=== PATIENT | male | born 1970 | race Caucasian/White ===

== ENCOUNTER 2021-11-28 16:00 | Outpatient (RCR) | payer OTHER, SELFPAY | END 2021-11-28 17:12 | disposition home or self-care (01) | PROVIDERS: PCP Family Medicine; Visit Provider Family Medicine | DX: M51.36 Other intervertebral disc degeneration, lumbar region (principal); Z51.89 Encounter for other specified aftercare | CPT/HCPCS: 97110; 97162 ==

== ENCOUNTER 2023-06-11 15:56 | Outpatient (CLI) | payer OTHER, SELFPAY | END 2023-06-11 15:57 | disposition home or self-care (01) | PROVIDERS: PCP Family Medicine; Visit Provider Family Medicine | DX: Z00.00 Encounter for general adult medical examination without abnormal findings (principal); R53.83 Other fatigue; Z13.6 Encounter for screening for cardiovascular disorders | CPT/HCPCS: 80053; 80061; 82607; 84443; G0103 ==

== ENCOUNTER 2023-07-01 16:47 | Outpatient (CLI) | payer OTHER, SELFPAY ==
--- OUTSIDE RECORDS SUMMARY | 2023-07-01 16:49 | XMS_ITS | Clinical Summary ---
Author Name Unknown Organization [facility] Address [place], [place] [address] Care Team Providers Care Biological Lab Technician Name Role Phone Ade Stout DO Primary Care Provider [phone] Allergies Active Allergy Reactions Criticality Noted Date Comments Omeprazole Other - Describe In Comment Field 11/09/2014 Patient states that the medication messed with my depth perception related to his vision. Medications Medication Sig Dispensed Refills Start Date End Date Status FLUoxetine (PROZAC) 20 mg capsuleIndications:P remature ejaculation Take 1 Capsule (20 mg) by mouth every morning. 30 Capsule 04/05/2022 Active tadalafiL (CIALIS) 10 mg tabletIndications:Pr emature ejaculation TAKE ONE-HALF TABLET BY MOUTH DAILY IF NEEDED TAKE 30 MINUTES BEFORE SEXUAL ACTIVITY 10 Tablet 05/08/2023 Active Active Problems Problem Noted Date Diagnosed Date Irritable bowel syndrome 02/16/2019 Gallbladder polyp 01/06/2018 Adenomatous colon polyp 04/12/2016 Overview: Colonoscopy 03/2016 polyp repeat in 5 years Constipation 04/20/2015 External hemorrhoids without mention of complica tion 10/04/2008 Heart murmur Encounters Date Type Department Care Team Description 05/07/2023 Refill [facility] [address] [place] [address] Ade Stout DO Refill Request (Tadalafil) from Last 3 Months Immunizations Name Administration Dates Next Due DTaP 08/10/1975 Hepatitis B (Adult) 06/17/2014,11/26/2001,2001 MMR 11/04/1977,08/10/1975 Rubella 08/10/1975 Td (Age >=7 Years) 09/26/1998 Tdap 06/17/2014 Family History Medical History Relation Name Comments Cancer-colon Father Diabetes Father Heart Disease Maternal Grandmother Heart murmur Good Health Mother Genetic Other mother A\T\W~fa ther A\T\W~brother A\T\W~grandparents DM~no known CA, HTN, CAD Heart Disease Sister Heart murmur Relation Name Status Comments Father Alive Maternal Grandmother Mother Alive Other Sister Social History Tobacco Use Types Packs/Day Years Used Date Smoking Tobacco: Former Cigarettes 0.5 25 0 08/22/1986 - 08/23/2011 Smokeless Tobacco: Never Tobacco Cessation:Counseling Given: Not Answered Comments:Smoking History Packs/day: 0.5 Alcohol Use Standard Drinks/Week Comments No 0 (1 standard drink = 0.6 oz pur e alcohol) PHQ-2 Answer Date Recorded PHQ-2 TOTAL SCORE 0 03/12/2022 Social Connections Answer Date Recorded Frequency of Communication with Friends and Fami ly Not on file 04/15/2023 Financial Resource Strain Answer Date R ecorded Difficulty of Paying Living Expenses 3 04/01/2022 Difficulty of Paying Living Expenses Not on file 04/01/2022 Food Insecurity Answer Date Recorded Worried About Running Out of Food in the Last Ye ar 1 04/01/2022 Transportation Needs Answer Date Record ed Lack of Transportation (Medical) 1 04/01/2022 Housing Stability Answer Date Recorded Unable to Pay for Housing in the Last Year 1 04/01/2022 Sex and Gender Information Value Date Recorded Sex Assigned at Not on file Gender Identity Not on file Sexual Orientation Not on file Obstetrics History Last Filed Vital Signs Vital Sign Reading Time Taken Comments Blood Pressure 102/60 04/25/2022 2:44 PM TEXTILE SCREEN MAKER Pulse 65 04/25/2022 2:44 PM TEXTILE SCREEN MAKER Temperature 36.7 ??C (98 ??F) 12/21/2021 10:26 AM CDT Respiratory Rate 16 04/25/2022 2:44 PM TEXTILE SCREEN MAKER Oxygen Saturation 96% 04/01/2022 4:07 PM TEXTILE SCREEN MAKER Inhaled Oxygen Concentration - - Weight 84.8 kg (187 lb) 04/25/2022 2:44 PM TEXTILE SCREEN MAKER Height 174.3 cm (5' 8.62) 04/25/2022 2:44 PM CS T Body Mass Index 27.92 04/25/2022 2:44 PM TEXTILE SCREEN MAKER Plan of Treatment Health Maintenance Due Date Last Done Comments Zoster (shingles) series for age 50+ (1 of 2) 01/08/2022 COVID-19 vaccine series (4 - season) 2022 02/28/2021, 06/28/2020, 06/05/2020 Depression screening for age 12+ 03/12/2023 03/12/2022, 03/31/2018, 01/02/2017, Additional history exists BMI (ht and wt on same day) for age 18+ 04/25/2023 04/25/2022, 03/12/2022, 05/05/2019, Additional history exists Influenza for age 50-64 11/16/2023 Tetanus booster 06/17/2024 06/17/2014, 09/26/1998 Colonoscopy through age 75 04/09/202604/09, 04/09/2016, 03/06/2016 Lipids for age 45-75 03/12/2027 03/12/2022, 06/09/2014, 04/11/2011 Tdap Completed 06/17/2014 HIV for age 15-65 Completed 03/12/2022 Hepatitis C screening for age 18-79 Completed 03/12/2022 Pneumococcal series for age 6-64 Aged Out No longer eligible based on patient's age to complete this topic Procedures Procedure Name Priority Date/Time Associated Diagnosis Comments LC HIV-1/O/2, 4TH GENERATION Routine 03/12/2022 4:27 PM TEXTILE SCREEN MAKER Screening for HIV (human immunodeficiency virus) LC HCV ANTIBODY RFX TO QUANT PCR Routine 03/12/2022 4:27 PM TEXTILE SCREEN MAKER Need for hepatitis C screening test LC LIPID PANEL AND CHOL/HDL RATIO Routine 03/12/2022 4:27 PM TEXTILE SCREEN MAKER Screening for lipid disorders COLONOSCOPY 04/09/2016 12:03 PM TEXTILE SCREEN MAKER from Last 3 Months or Most Recently Relevant to Health Maintenance Results * (ABNORMAL) LC LIPID PANEL AND CHOL/HDL RATIO (03/12/2022 4:27 PM [facility]) [facility] Cholesterol, Total 220(H) 100 - 199 mg/dL 03/15/2022 8:09 AM [facility] Triglycerides 94 0 - 149 mg/dL 03/15/2022 8:09 AM [facility] HDL Cholesterol 50 >39 mg/dL 8:09 AM [facility] VLDL Cholesterol Jean 17 5 - 40 mg/dL 03/15/2022 8:09 AM [facility] LDL Chol Calc ([facility]) 153(H) 0 - 99 mg/dL 03/15/2022 8:09 AM [facility] T. Chol/HDL Ratio 4.4 0.0 - 5.0 ratio 03/15/2022 8:09 AM [facility]) Comment: ?T. Chol/HDL Ratio ?Men ??Women ?1/2 Avg.Risk ??3.4 ?3.3 ?Avg.Risk ??5.0 ?4.4 ? 2X Avg.Risk ??9.6 ?7.1 ? 3X Avg.Risk 23.4 ?? 11.0 Blood BLOOD SPECIMEN / Unknown Venipuncture / Unknown 03/12/2022 4:27 PM TEXTILE SCREEN MAKER 03/13/2022 7:10 AM TEXTILE SCREEN MAKER Narrative [facility] ([facility]) - 03/15/2022 8:09 AM TEXTILE SCREEN MAKER Performed at: ??01 - [address] ??[id number] Coin Purse Framer: Ron Peterson MD, Phone: ??[phone] Ade Stout DO SEND OUTS Performing Organization Address [facility] Co de Phone Number [facility] ([facility]) [address] [place] [address], * LC HCV ANTIBODY RFX TO QUANT PCR (03/12/2022 4:27 PM TEXTILE SCREEN MAKER) Pathologist [facility] HCV Ab <0.1 0.0 - 0.9 s/co ratio 03/15/2022 8:[address] [facility] ([facility]) Blood BLOOD SPECIMEN / Unknown Venipuncture / Unknown 03/12/2022 4:27 PM TEXTILE SCREEN MAKER 03/12/2022 4:28 PM TEXTILE SCREEN MAKER Narrative [facility] ([facility]) - 03/15/2022 8:36 AM TEXTILE SCREEN MAKER Performed at: ??[address] - [address] ??[id number] Coin Purse Framer: Ron Peterson MD, Phone: ??[phone] Ade Stout DO LABORATORY Performing Organization Address [facility] Co de Phone Number [facility] ([facility]) [address] [place] [address] * LC HIV-1/O/2, 4TH GENERATION (03/12/2022 4:27 PM TEXTILE SCREEN MAKER) Pathologist [facility] HIV Scr 4th Gen Non Reactive Non Reactive 03/15/2022 7:[address] [facility]) Comment: HIV Negative HIV-1/HIV-2 antibodies and HIV-1 p24 antigen were NOT detected. There is no laboratory evidence of HIV infection. Blood BLOOD SPECIMEN / Unknown Venipuncture / Unknown 03/12/2022 4:27 PM TEXTILE SCREEN MAKER 03/12/2022 4:28 PM TEXTILE SCREEN MAKER Narrative [facility] ([facility]) - 03/15/2022 7:13 AM TEXTILE SCREEN MAKER Performed at: ??01 - [facility] [employer] [place], [place] ??[id number] Coin Purse Framer: Ron Peterson MD, Phone: ??[phone] Ade Stanhallie DO LABORATORY [facility] ([facility]) [facility] [place] [address], * COLONOSCOPY (04/09/2016 12:03 PM TEXTILE SCREEN MAKER) 04/09/2016 12:0 3 PM TEXTILE SCREEN MAKER Narrative Transcriptions Carlos Henao MD - 05/07/2016 1:07 PM CST Patient Name: Bret Dalilaramer Procedure Date: 04/09/2016 Gender: Male Date of : 1970 Admit Type: Outpatient Procedure: Colonoscopy Proceduralist: Carlos Henao MD Indications/Pre-Op Diagnosis: Periumbilical abdominal pain Medications: Fentanyl 200 micrograms IV, Midazolam 4 mgIV, The level of sedation administered wasmoderate Procedure Description: The patient had risks, benefits and alternatives explained to andgave informed consent. The patient had a stable cardiopulmonary status and judged an adequate candidate for conscious sedation. The [id number] was passed through the anus and advanced tothe terminal ileum. The colonoscopy was performed without difficulty. The patient tolerated the procedure well. The quality of the bowel preparation was excellent. The terminal ileum, ileocecal valve, appendiceal orifice, and rectum were photographed. Moderate(conscious) sedation was administered by the endoscopist. The followingparameters were monitored: oxygen saturation, heart rate, blood pressure, and response to care. Please see endoscopy/ nursing flow sheet and notesfor moderate sedation information and documentation. Total physician intra-service/sedation time was 21 minutes. Complications: No immediate complications. Estimated Blood Loss & Specimen: Estimated blood loss: none. Specimen collected - Yes and sent to Laboratory Findings: The perianal and digital rectal examinations were normal. A 3 mm polyp was found in the descending colon. The polyp wassessile. The polyp was removed with a cold biopsy forceps. Resection and retrieval were complete. The exam was otherwise without abnormality on direct and retroflexion views. The terminal ileum appeared normal. Impressions/Post-Op Diagnosis: - One 3 mm polyp in the descending colon, removed with a cold biopsy forceps. Resected and retrieved. - The examination was otherwise normal on direct and retroflexionviews. - The examined portion of the ileum was normal. Recommendation: - Patient has a contact number available for emergencies. The signsand symptoms of potential delayed complications were discussed with the patient. Return to normal activities tomorrow. Written discharge instructions were provided to the patient. - Resume previous diet. - Continue present medications. - Await pathology results. - Repeat colonoscopy is recommended. The colonoscopy date will be determined after pathology results from today's exam become available for review. Carlos Henao MD 04/09/2016 12:40:34 PM This report has been signed electronically. Note Initiated On: 04/09/2016 12:03 PM Procedure Code(s): --- Professional --- 58079, Colonoscopy, flexible; with biopsy, single or multiple Diagnosis Code(s): --- Professional --- D12.4, Benign neoplasm of descending colon R10.33, Periumbilical pain CPT copyright 2015 [employer]. All rights reserved. The codes documented in this report are preliminary and upon packing house supervisor reviewmay be revised to meet current compliance requirements. Scope In: 12:16:24 PM Scope Withdrawal Time 0 hours 10 minutes 18 seconds Scope Out: 12:33:47 PM Carlos Henao MD PROCEDURE ORD from Last 3 Months or Most Recently Relevant to Health Maintenance Care Teams Biological Lab Technician Relationship Specialty Start Date End Date Ade Stout DO [address] [place] [address] PCP - General Family Practice 03/26/22
--- OUTSIDE RECORDS SUMMARY | 2023-07-01 16:49 | XMS_ITS | Clinical Summary ---
Author Name Unknown Organization [facility] Address [address] [place] [address] Care Team Providers Care Professional Soccer Player Name Role Phone Catrachita Petty PA-C Primary Care Provider [phone] Source Comments You are receiving this document as you are listed as the primary care provider,follow-up provider, or the patient has been referred to you for consultation.This is in compliance with the Medicare and[facility] EHR Incentive Program,which states Providers who transition their patient to another setting of careor provider of care or refers their patient to another provider of care shouldprovide summary care record for each transition of care or referral. [facility] Allergies No known active allergies Medications No known medications Active Problems Problem Noted Date Diagnosed Date Irritable bowel syndrome 02/16/2019 Gallbladder polyp 01/06/2018 Family History Medical History Relation Name Comments Diabetes, Type II Father No Known Problems Brother 1 No Known Problems Brother 2 No Known Problems Brother 3 Diabetes Maternal Aunt insulin overdose Maternal Aunt Diabetes Maternal Grandmother Alzheimer's Paternal Grandfather Diabetes Paternal Grandmother No Known Problems Sister Relation Name Status Comments Father Alive Mother Alive Brother 1 Alive Brother 2 Alive Brother 3 Alive Maternal Aunt Maternal Grandfather Maternal Grandmother Paternal Grandfather Paternal Grandmother Sister Alive Social History Tobacco Use Types Packs/Day Years Used Date Smoking Tobacco: Former Smokeless Tobacco: Never Alcohol Use Standard Drinks/Week Comments Not Currently 0 (1 standard drink = 0.6 oz pur e alcohol) PHQ-2 Answer Date Recorded PHQ-2 Score 0 06/27/2020 Sex and Gender Information Value Date Recorded Sex Assigned at Not on file Gender Identity Not on file Sexual Orientation Not on file Last Filed Vital Signs Vital Sign Reading Time Taken Comments Blood Pressure 111/72 06/27/2020 7:02 AM CDT Pulse 59 06/27/2020 7:02 AM CDT Temperature 36.9 ??C (98.4 ??F) 02/15/2019 2:24 PM CS T Respiratory Rate 18 06/27/2020 7:02 AM CDT Oxygen Saturation - - Inhaled Oxygen Concentration - - Weight 84.8 kg (187 lb) 06/27/2020 7:02 AM CDT Height 175.3 cm (5' 9) 06/27/2020 7:02 AM CDT Body Mass Index 27.62 06/27/2020 7:02 AM CDT Plan of Treatment Health Maintenance Due Date Last Done Comments Hep C Screening (Preventive Services) 1970 PSA Screening Discussion 1970 HIV Screening (Preventive Services) 1988 Adult Preventive Visit 01/08/1990 HepB (1) 01/08/1991 Colonoscopy 04/09/2021 04/09/2016 (Completed) Zoster/Shingles (1 of 2) 01/08/2022 COVID-19 Vaccine (2 - 2022-2 4 season) 2022 06/05/2020 Influenza (#1) 2022 DTaP/Tdap/Td (3 - Tdap) 06/17/2024 06/18/19 15, 09/26/1998, 08/10/1975 Cholesterol 06/27/2025 06/27/2020 HepA Aged Out No longer eligi ble based on patient's age to complete this topic Hib Aged Out No longer eligi ble based on patient's age to complete this topic IPV (Polio) Aged Out No longer eligi ble based on patient's age to complete this topic MCV4 Aged Out No longer eligi ble based on patient's age to complete this topic Pneumococcal Aged Out No longer eligi ble based on patient's age to complete this topic Procedures Procedure Name Priority Date/Time Associated Diagnosis Comments LIPID PANEL & DIRECT LDL (IF NEEDED) Routine 06/27/2020 7:51 AM CDT Screening for lipid disorders from Last 3 Months or Most Recently Relevant to Health Maintenance Results * (ABNORMAL) Lipid Panel and Direct LDL(If Needed) (06/27/2020 7:51 AM CDT) Cholesterol 206(H) 0 - 199 mg/dL 06/27/2020 11:47 AM CDT [facility] Triglyceride 140 <=149 mg/dL 06/27/2020 11:47 AM CDT [facility] HDL Cholesterol 45 >=40 mg/dL 06/27/2020 11:47 AM CDT [facility] LDL, Calculated 133(H) <130 mg/dL 06/27/2020 11:47 AM CDT [facility] Non HDL Chol, Calculated 161 mg/dL 06/27/2020 11:47 AM CDT [facility] Cholesterol/HDL Ratio 4.6 06/27/2020 11:47 AM CDT [facility] Hours Fasting 12 06/27/2020 11:47 AM CDT [facility] Blood Venipuncture / Unknown 06/27/2020 7:51 AM CDT 06/27/2020 7:51 AM CDT Werner Shields PA-C LAB_1 Performing Organization Address City/State/[facility] Co de Phone Number [facility] [address] [address] [phone] [facility] [address] [place] [address] [phone] from Last 3 Months or Most Recently Relevant to Health Maintenance Care Teams Professional Soccer Player Relationship Specialty Start Date End Date Catrachita Petty PA-C [address] [place] [address] PCP - General Physician Maintenance Technician [address]Rd Shift 02/16/19
--- NOTE | 2023-07-01 17:00 | US_ITS ---
Patient: MICHAEL DIOR Facility:?[facility] Patient ID:?[id number] Site Patient ID:?[id number]. Site :?1970 Study:?US-Abdomen ABD LMT-07/01/2023 5:27:59 PM Ordering Physician:?MACK ARGUELLO M.D. Final Report: INDICATION: Cholesterolosis of the gallbladder.. TECHNIQUE: Ultrasound abdomen limited. Limited scans of the right upper quadrant were obtained. COMPARISON: None. FINDINGS: Gallbladder: No stones or sludge. There is a 2 millimeter gallbladder wall polyp. No pericholecystic fluid. Common bile duct: 3 mm. Pancreas: Unremarkable. Liver: Unremarkable. Abdominal aorta: The abdominal aorta has a normal caliber measuring up to 2.5 centimeters. Right kidney: Not imaged. IMPRESSION: 2 millimeter gallbladder wall polyp. Dictated by Zuhair Quintana MD @ 07/02/2023 8:31:58 AM Signed by:?Zuhair Quintana MD @07/02/2023 8:31:58 AM (Electronic Signature)
== END 2023-07-01 16:48 | disposition home or self-care (01) ==
LOC: US 16:47
PROVIDERS: PCP Family Medicine; Visit Provider Family Medicine
DX: K82.4 Cholesterolosis of gallbladder (principal)
CPT/HCPCS: 76705

== ENCOUNTER 2023-07-11 08:27 | Outpatient (CLI) | payer OTHER, SELFPAY ==
--- OUTSIDE RECORDS SUMMARY | 2023-07-11 08:29 | XMS_ITS | Clinical Summary ---
Author Name Unknown Organization [facility] Address [address] [place] [address] Care Team Providers Care Director [employer] Name Role Phone Catrachita Petty PA-C Primary Care Provider [phone] Source Comments You are receiving this document as you are listed as the primary care provider,follow-up provider, or the patient has been referred to you for consultation.This is in compliance with the Medicare and[facility] E[facility] Incentive Program,which states Providers who transition [...] - 199 mg/dL 06/27/2020 11:47 AM CDT [facility] Triglyceride 140 <=149 mg/dL 06/27/2020 11:47 AM CDT [facility] HDL Cholesterol 45 >=40 mg/dL 06/27/2020 11:47 AM CDT [facility] LDL, Calculated 133(H) <130 mg/dL 06/27/2020 11:47 AM CDT [facility] Non HDL Chol, Calculated 161 mg/dL 06/27/2020 11:47 AM CDT [facility] Cholesterol/HDL Ratio 4.6 06/27/2020 11:47 AM CDT [facility] Hours Fasting 12 06/27/2020 11:47 AM CDT [facility] Blood Venipuncture / Unknown 06/27/2020 7:51 AM CDT 06/27/2020 7:51 AM CDT Werner Shields PA-C LAB_1 Performing Organization Address City/State/[facility] Co de Phone Number [facility] [address] [address] [phone] [facility] [address] [place] [address] [phone] from Last 3 Months or Most Recently Relevant to Health Maintenance Care Teams Director [employer] Relationship Specialty Start Date End Date Catrachita Petty PA-C [address] [place] [address] PCP - General Physician Agriculture Professor 02/16/19
--- OUTSIDE RECORDS SUMMARY | 2023-07-11 08:29 | XMS_ITS | Clinical Summary ---
Author Name Unknown Organization [facility] Address [place], [place] [address] Care Team Providers Care Core Stripper Name Role Phone Ade Stout DO Primary Care Provider [phone] Allergies Active Allergy Reactions Criticality Noted Date [...] Type Department Care Team Description 05/07/2023 Refill [facility] [address] [place] [address] Ade Stout DO Refill Request (Tadalafil) from [...] Comments Blood Pressure 102/60 04/25/2022 2:44 PM ENROLLED AGENT Pulse 65 04/25/2022 2:44 PM ENROLLED AGENT Temperature 36.7 ??C (98 ??F) 12/21/2021 10:26 AM CDT Respiratory Rate 16 04/25/2022 2:44 PM ENROLLED AGENT Oxygen Saturation 96% 04/01/2022 4:07 PM ENROLLED AGENT Inhaled Oxygen Concentration - - Weight 84.8 kg (187 lb) 04/25/2022 2:44 PM ENROLLED AGENT Height 174.3 cm (5' 8.62) 04/25/2022 2:44 PM CS T Body Mass Index 27.92 04/25/2022 2:44 PM ENROLLED AGENT Plan of Treatment Health Maintenance Due Date [...] HIV-1/O/2, 4TH GENERATION Routine 03/12/2022 4:27 PM ENROLLED AGENT Screening for HIV (human immunodeficiency virus) LC HCV ANTIBODY RFX TO QUANT PCR Routine 03/12/2022 4:27 PM ENROLLED AGENT Need for hepatitis C screening test LC LIPID PANEL AND CHOL/HDL RATIO Routine 03/12/2022 4:27 PM ENROLLED AGENT Screening for lipid disorders COLONOSCOPY 04/09/2016 12:03 PM ENROLLED AGENT from Last 3 Months or Most Recently Relevant to Health Maintenance Results * (ABNORMAL) LC LIPID PANEL AND CHOL/HDL RATIO (03/12/2022 4:27 PM [facility]) [facility] Cholesterol, Total 220(H) 100 - 199 mg/dL 03/15/2022 8:09 AM [facility] ([facility]) Triglycerides 94 0 - 149 mg/dL 03/15/2022 8:09 AM [facility] ([facility]) HDL Cholesterol 50 >39 mg/dL 8:09 AM [facility] ([facility]) VLDL Cholesterol Jean 17 5 - 40 mg/dL 03/15/2022 8:09 AM [facility] ([facility]) LDL Chol Calc ([facility]) 153(H) 0 - 99 mg/dL 03/15/2022 8:09 AM [facility] ([facility]) T. Chol/HDL Ratio 4.4 0.0 - 5.0 ratio 03/15/2022 8:09 AM [facility] ([facility]) Comment: ?T. Chol/HDL Ratio ?Men ??Women ?1/2 Avg.Risk ??3.4 ?3.3 ?Avg.Risk ??5.0 ?4.4 ? 2X Avg.Risk ??9.6 ?7.1 ? 3X Avg.Risk 23.4 ?? 11.0 Blood BLOOD SPECIMEN / Unknown Venipuncture / Unknown 03/12/2022 4:27 PM ENROLLED AGENT 03/13/2022 7:10 AM ENROLLED AG[address] [facility] ([facility]) - 03/15/2022 8:09 AM ENROLLED AGENT Performed at: ??01 - [address] ??[id number] Singe Machine Operator: Ron Peterson MD, Phone: ??[phone] Ade Stout DO SEND OUTS Performing Organization Address [facility] Co de Phone Number [facility] ([facility]) [address] [place] [address], * LC HCV ANTIBODY RFX TO QUANT PCR (03/12/2022 4:27 PM ENROLLED AGENT) Pathologist [facility] HCV Ab <0.1 0.0 - 0.9 s/co ratio 03/15/2022 8:[address] [facility] ([facility]) Blood BLOOD SPECIMEN / Unknown Venipuncture / Unknown 03/12/2022 4:27 PM ENROLLED AGENT 03/12/2022 4:28 PM ENROLLED AGENT Narrative [facility] ([facility]) - 03/15/2022 8:36 AM ENROLLED AGENT Performed at: ??01 - [address] ??[id number] Singe Machine Operator: Ron Peterson MD, Phone: ??[phone] Ade Stout DO LABORATORY Performing Organization Address [facility] Co de Phone Number [facility] ([facility]) [address] [place] [address] * LC HIV-1/O/2, 4TH GENERATION (03/12/2022 4:27 PM ENROLLED AGENT) Pathologist [facility] HIV Scr 4th Gen Non Reactive Non Reactive 03/15/2022 7:[address] [facility] ([facility]) Comment: HIV Negative HIV-1/HIV-2 antibodies and HIV-1 p24 antigen were NOT detected. There is no laboratory evidence of HIV infection. Blood BLOOD SPECIMEN / Unknown Venipuncture / Unknown 03/12/2022 4:27 PM ENROLLED AGENT 03/12/2022 4:28 PM ENROLLED AGENT Narrative [facility] ([facility]) - 03/15/2022 7:13 AM ENROLLED AGENT Performed at: ??01 - [facility] [place], [place] ??[id number] Singe Machine Operator: Ron Peterson MD, Phone: ??[phone] Ade Stanhallie DO LABORATORY [facility] ([facility]) [facility] [place] [address], * COLONOSCOPY (04/09/2016 12:03 PM ENROLLED AGENT) 04/09/2016 12:0 3 PM ENROLLED AGENT Narrative Transcriptions Carlos Henao MD - 05/07/2016 [...] adequate candidate for conscious sedation. The PCF-Q290AL [id number] was passed through the anus and advanced [...] 12:03 PM Procedure Code(s): --- Professional --- 10528, Colonoscopy, flexible; with biopsy, single or multiple Diagnosis Code(s): --- Professional --- D12.4, Benign neoplasm of descending colon R10.33, Periumbilical pain CPT copyright 2015 [employer]. All rights reserved. The codes documented in this report are preliminary and upon stripping cutter and winder reviewmay be revised to meet current compliance requirements. Scope In: 12:16:24 PM Scope Withdrawal Time 0 hours 10 minutes 18 seconds Scope Out: 12:33:47 PM Carlos Henao MD PROCEDURE ORD from Last 3 Months or Most Recently Relevant to Health Maintenance Care Teams Core Stripper Relationship Specialty Start Date End Date Ade Stout DO [address] [place] [address] PCP - General Family Practice 03/26/22
--- NOTE | 2023-07-11 10:01 | W.ANESCHARGE ---
Anesthesia Charges Start Date/Time Anesthesia Start Date: 07/11/23 Anesthesia Start Time: 09:40 Stop Date/Time Anesthesia Stop Date: 07/11/23 Anesthesia Stop Time: 10:02
--- NOTE | 2023-07-11 10:43 | W.ANESCHARGE ---
Anesthesia Charges Start Date/Time Anesthesia Start Date: 07/11/23 Anesthesia Start Time: 09:40 Stop Date/Time Anesthesia Stop Date: 07/11/23 Anesthesia Stop Time: 10:02
== END 2023-07-11 08:28 | disposition home or self-care (01) ==
LOC: OP CLINIC 08:27
PROVIDERS: PCP Family Medicine; Visit Provider Internal Medicine
DX: Z12.11 Encounter for screening for malignant neoplasm of colon (principal); K63.5 Polyp of colon; Z86.010 Personal history of colon polyps
CPT/HCPCS: 00811; 45380; 88305

== ENCOUNTER 2023-07-24 11:38 | Outpatient (CLI) | payer OTHER, SELFPAY ==
--- OUTSIDE RECORDS SUMMARY | 2023-07-24 11:40 | XMS_ITS | Continuity of Care Document ---
Author Name Unknown Organization [facility] Address [address] [address] [place] [address] Phone Care Team Providers Care Electrical Line Mechanic Name Role Phone Santi Jeffers MD Unavailable Unavailable Allergies, Adverse Reactions, Alerts Substance Reaction Status Criticality No Known allergies Medications Medication Instructions Dosage Effective Dates (start - stop) Status Comments Prilosec OTC 20 mg Tab Take one tablet by mouth daily - Active Reglan 10 mg Tab Take one tablet by mouth three times per day 1/2 hour before meals - Active Advance Directives Directive Yes / No Effective Date File Name No Information Encounters Encounter Description Practice Location Reason(s) For Visit Diagnoses Date Provider Providers Copied on Encounter [facility], [address] [address], [place], [place], [id number], tel:[phone] [facility] No Information Zeyad Hancock. [address] [place] [address], [id number], [place]. tel:[phone] Referring Provider: MD Bhakta Primary. [facility], [address] [address], [place], [place], [id number], tel:[phone] [facility] No Information Zeyad Hancock. [address] [place] [id number], [place]. tel:[phone] Referring Provider: Referral Self, USE FOR SELF REFERRALS. Family History Family Member Type Diagnosis Age At Onset No Information Payers Payer name Insurance type Covered libertarian ID Authoriza tion(s) [employer] CI [id number] Social History Type Description Quantity Date Captured Comments Sex Male Smoking Status No Information Chief Complaint And Reason For Visit No Information Reason For Referral Reason For Referral No Information History Of Present Illness Encounter Date Complaint History Of Prese nt Illness No Information Functional Status Date Functional Assessmen t No Information Instructions Date Instruction Additional Infor mation No Information Assessments Type Assessment Date No Information Patient Care Teams Name Effective Dates (start - stop) Status Members No Information
--- OUTSIDE RECORDS SUMMARY | 2023-07-24 11:40 | XMS_ITS | Clinical Summary ---
Author Name Unknown Organization [facility] Address [address] [place] [address] Care Team Providers Care Technical Support Intern Name Role Phone Catrachita Petty PA-C Primary Care Provider [phone] Source Comments You are receiving this document as you are listed as the primary care provider,follow-up provider, or the patient has been referred to you for consultation.This is in compliance with the Medicare and[facility] EHR Incentive Program,which states Providers who transition [...] - 2022-2 4 season) 2022 06/05/2020 Influenza (Season Ended) 2023 DTaP/Tdap/Td (3 - Tdap) 06/17/2024 06/18/19 15, [...] - 199 mg/dL 06/27/2020 11:47 AM CDT [facility] Triglyceride 140 <=149 mg/dL 06/27/2020 11:47 AM CDT [facility] HDL Cholesterol 45 >=40 mg/dL 06/27/2020 11:47 AM CDT [facility] LDL, Calculated 133(H) <130 mg/dL 06/27/2020 11:47 AM CDT [facility] Non HDL Chol, Calculated 161 mg/dL 06/27/2020 11:47 AM CDT [facility] Cholesterol/HDL Ratio 4.6 06/27/2020 11:47 AM CDT [facility] Hours Fasting 12 06/27/2020 11:47 AM CDT [facility] Blood Venipuncture / Unknown 06/27/2020 7:51 AM CDT 06/27/2020 7:51 AM CDT Werner Shields PA-C LAB_1 Performing Organization Address City/State/[facility] Co de Phone Number [facility] [address] [address] [phone] [facility] [address] [place] [address] [phone] from Last 3 Months or Most Recently Relevant to Health Maintenance Care Teams Technical Support Intern Relationship Specialty Start Date End Date Catrachita Petty PA-C [address] [place] [address] PCP - General Physician Conservation Policy Analyst 02/16/19
--- OUTSIDE RECORDS SUMMARY | 2023-07-24 11:40 | XMS_ITS | Clinical Summary ---
Author Name Unknown Organization [facility] Address [place], [place] [address] Care Team Providers Care Salesperson Driver Name Role Phone Ade Stout DO Primary Care Provider [phone] Allergies Active Allergy Reactions Criticality Noted Date [...] Encounters Date Type Department Care Team Description 07/11/2023 Lab Requisition L [facility] [phone] Chris Ayers MD 05/07/2023 Refill [facility] [address] [place] [address] Ade Stout DO Refill Request (Tadalafil) from [...] Comments Blood Pressure 102/60 04/25/2022 2:44 PM DIRECTOR SPORTS Pulse 65 04/25/2022 2:44 PM DIRECTOR SPORTS Temperature 36.7 ??C (98 ??F) 12/21/2021 10:26 AM CDT Respiratory Rate 16 04/25/2022 2:44 PM DIRECTOR SPORTS Oxygen Saturation 96% 04/01/2022 4:07 PM DIRECTOR SPORTS Inhaled Oxygen Concentration - - Weight 84.8 kg (187 lb) 04/25/2022 2:44 PM DIRECTOR SPORTS Height 174.3 cm (5' 8.62) 04/25/2022 2:44 PM CS T Body Mass Index 27.92 04/25/2022 2:44 PM DIRECTOR SPORTS Plan of Treatment Health Maintenance Due Date Last Done Comments Zoster (shingles) series for age 50+ (1 of 2) 01/08/2022 COVID-19 vaccine series ( season) 2022 02/28/2021, 06/28/2020, 06/05/2020 Depression screening [...] Procedure Name Priority Date/Time Associated Diagnosis Comments LAB TRACKING EVENT Routine 07/11/2023 9: 55 AM CDT PATH TISSUE EXAM Routine 07/11/2023 9:55 AM CDT LC HIV-1/O/2, 4TH GENERATION Routine 03/12/2022 4:27 PM DIRECTOR SPORTS Screening for HIV (human immunodeficiency virus) LC HCV ANTIBODY RFX TO QUANT PCR Routine 03/12/2022 4:27 PM DIRECTOR SPORTS Need for hepatitis C screening test LC LIPID PANEL AND CHOL/HDL RATIO Routine 03/12/2022 4:27 PM DIRECTOR SPORTS Screening for lipid disorders COLONOSCOPY 04/09/2016 12:03 PM DIRECTOR SPORTS from Last 3 Months or Most Recently Relevant to Health Maintenance Results * LAB TRACKING EVENT (07/11/2023 9:55 AM CDT) Other (Other) Client Collect / Unknown 07/11/2023 9:55 AM CDT 07/11/2023 9:05 PM CDT Chris Ayers MD LAB BILL ONLY [facility] [address] [place] [address], * PATH TISSUE EXAM (07/11/2023 9:55 AM CDT) Case Report Pathology Report ?Case: [id number] ? Authorizing Provider: ??Chris Ayers MD ?Collected: ? 07/11/2023 0955 ? Ordering Location: ? [facility] ?Received: ?07/12/2023 0836 ? Pathologist: ? Werner Mena MD ? Specimen: ? 07/14/2023 11:11 AM CDT [facility] Final Diagnosis A) COLON, SIGMOID, POLYPECTOMY: 1. Hyperplastic polyp 07/14/2023 11:11 AM [facility] Clinical Information Mr. Mora is a 53 y.o. who presents for high risk colon cancer surveillance colonoscopy. 07/14/2023 11:11 AM [facility] Gross Description A) Received in formalin is a chanel mucosal fragment measuring 3 mm in greatest dimension, which is entirely submitted in one cassette. It is labeled with the patient's name and designated sigmoid polyp. Gisella Walters 07/12/2023 11:06 AM 07/14/2023 11:11 AM [facility] Microscopic Description The final diagnosis is based on microscopic examination of appropriate sections of all specimens. 07/14/2023 11:11 AM [facility] Additional Information Interpreted at [facility], Central Laboratory - [address] [place], [place] [address]e S[facility] [address], [place] [address] 07/14/2023 11:11 AM [facility] Other 07/11/2023 9:55 AM CDT 07/12/2023 8:36 AM CDT Chris Ayers MD PATHOLOG[facility] [address] [place] [address], * (ABNORMAL) LC LIPID PANEL AND CHOL/HDL RATIO (03/12/2022 4:27 PM DIRECTOR SPORTS) Cholesterol, Total 220(H) 100 - 199 mg/dL 03/15/2022 8:09 AM DIRECTOR SPORTS [facility] Triglycerides 94 0 - 149 mg/dL 03/15/2022 8:[address] [facility] ([facility]) HDL Cholesterol 50 >39 mg/dL 8:[address] [facility] ([facility]) VLDL Cholesterol Jean 17 5 - 40 mg/dL 03/15/2022 8:[address] [facility] ([facility]) LDL Chol Calc ([facility]) 153(H) 0 - 99 mg/dL 03/15/2022 8:[address] [facility] ([facility]) T. Chol/HDL Ratio 4.4 0.0 - 5.0 ratio 03/15/2022 8:[address] [facility] ([facility]) Comment: ?T. Chol/HDL Ratio ?Men ??Women ?1/2 Avg.Risk ??3.4 ?3.3 ?Avg.Risk ??5.0 ?4.4 ? 2X Avg.Risk ??9.6 ?7.1 ? 3X Avg.Risk 23.4 ?? 11.0 Blood BLOOD SPECIMEN / Unknown Venipuncture / Unknown 03/12/2022 4:27 PM DIRECTOR SPORTS 03/13/2022 7:10 AM DIRECTOR SPORTS Narrative [facility] ([facility]) - 03/15/2022 8:09 AM DIRECTOR SPORTS Performed at: ??01 - [address] ??[id number] Fashion Editor: Ron Peterson MD, Phone: ??[phone] Ade Stout DO SEND OUTS Performing Organization Address [facility] de Phone Number [facility] ([facility]) [address] [place] [address], * LC HCV ANTIBODY RFX TO QUANT PCR (03/12/2022 4:27 PM DIRECTOR SPORTS) Pathologist [facility] HCV Ab <0.1 0.0 - 0.9 s/co ratio 03/15/2022 8:36 AM DIRECTOR SPORTS [facility] ([facility]) Blood BLOOD SPECIMEN / Unknown Venipuncture / Unknown 03/12/2022 4:27 PM DIRECTOR SPORTS 03/12/2022 4:28 PM DIRECTOR SPORTS Narrative [facility] ([facility]) - 03/15/2022 8:36 AM DIRECTOR SPORTS Performed at: ??01 - [address] ??[id number] Fashion Editor: Ron Peterson MD, Phone: ??[phone] Ade Stout DO LABORATORY Performing Organization Address [facility] de Phone Number [facility] ([facility]) [address] [place] [address], * LC HIV-1/O/2, 4TH GENERATION (03/12/2022 4:27 PM DIRECTOR SPORTS) [facility] HIV Scr 4th Gen Non Reactive Non Reactive 03/15/2022 7:13 AM DIRECTOR SPORTS [facility]) Comment: HIV Negative HIV-1/HIV-2 antibodies and HIV-1 p24 antigen were NOT detected. There is no laboratory evidence of HIV infection. Blood BLOOD SPECIMEN / Unknown Venipuncture / Unknown 03/12/2022 4:27 PM DIRECTOR SPORTS 03/12/2022 4:28 PM DIRECTOR SPORTS Narrative [facility] ([facility]) - 03/15/2022 7:13 AM DIRECTOR SPORTS Performed at: ??01 - [facility] [place] [employer] [place] [address] ??[id number] Fashion Editor: Ron Peterson MD, Phone: ??[phone] Ade Stanhallie DO LABORATORY [facility] ([facility]) [facility] [place] [address], * COLONOSCOPY (04/09/2016 12:03 PM DIRECTOR SPORTS) 04/09/2016 12:0 3 PM DIRECTOR SPORTS Narrative Transcriptions Carlos Henao MD - 05/07/2016 1:07 PM CST Patient Name: Bret [place] Procedure Date: 04/09/2016 Gender: Male Date of [...] adequate candidate for conscious sedation. The PCF-Q290AL [id number] was passed through the anus and advanced [...] 12:03 PM Procedure Code(s): --- Professional --- 10010, Colonoscopy, flexible; with biopsy, single or multiple Diagnosis Code(s): --- Professional --- D12.4, Benign neoplasm of descending colon R10.33, Periumbilical pain CPT copyright 2015 [employer]. All rights reserved. The codes documented in this report are preliminary and upon micro photographer reviewmay be revised to meet current compliance requirements. Scope In: 12:16:24 PM Scope Withdrawal Time 0 hours 10 minutes 18 seconds Scope Out: 12:33:47 PM Carlos Henao MD PROCEDURE ORD from Last 3 Months or Most Recently Relevant to Health Maintenance Care Teams Salesperson Driver Relationship Specialty Start Date End Date Ade Stout DO [address] [place] [address] PCP - General Family Practice 03/26/22
--- NOTE | 2023-07-24 12:00 | NM_ITS ---
Patient: MICHAEL Young DECRAMER Facility:?[facility] Patient ID:?[id number] Site Patient ID:?[id number]. Site :?[id number] Study:?NM-Gallbladder Procedure PRATIBHA johnson/ [facility]BE[facility]-07/24/2023 2:14:04 PM Ordering Physician:?THIAGO HEAD Final Report: Indication: Abdominal pain Technique: Nuclear medicine hepatobiliary scan with gallbladder ejection fraction per protocol after the intravenous administration of 5.3 millicuries technetium 99 M Mebrofenin and 1.6 micrograms of CCK. Comparison: Right upper quadrant ultrasound July 01, 2023 Findings: Normal hepatic extraction and excretion of the radiopharmaceutical. Prompt appearance of the common bile duct followed by the gallbladder and then small- bowel. No enterogastric reflux. After the administration of CCK there is significant contraction of the gallbladder. Calculated gallbladder ejection fraction is 91 percent. Impression: Hyperkinetic gallbladder Dictated by Lobo Puri MD @ 07/24/2023 4:28:48 PM Signed by:?Lobo Puri MD @07/24/2023 4:28:48 PM (Electronic Signature)
== END 2023-07-24 11:39 | disposition home or self-care (01) ==
LOC: NM 11:38
PROVIDERS: PCP Family Medicine; Visit Provider Surgery
DX: R10.9 Unspecified abdominal pain (principal); K82.8 Other specified diseases of gallbladder
CPT/HCPCS: 78227; A9537; J2805

== ENCOUNTER 2023-08-21 11:17 | Outpatient (CLI) | payer OTHER, SELFPAY ==
--- NOTE | 2023-08-21 12:08 | W.ANESCHARGE ---
Anesthesia Charges Start Date/Time Anesthesia Start Date: 08/21/23 Anesthesia Start Time: 12:05 Stop Date/Time Anesthesia Stop Date: 08/21/23 Anesthesia Stop Time: 12:35
--- NOTE | 2023-08-21 12:35 | W.ANESCHARGE ---
Anesthesia Charges Start Date/Time Anesthesia Start Date: 08/21/23 Anesthesia Start Time: 12:05 Stop Date/Time Anesthesia Stop Date: 08/21/23 Anesthesia Stop Time: 12:35
== END 2023-08-21 11:18 | disposition home or self-care (01) ==
LOC: OP CLINIC 11:17
PROVIDERS: PCP Family Medicine; Visit Provider Surgery
DX: R19.8 Other specified symptoms and signs involving the digestive system and abdomen (principal); K31.7 Polyp of stomach and duodenum
CPT/HCPCS: 00731; 43251; 88305; J2704; J3490

== ENCOUNTER 2024-04-01 15:23 | Outpatient (CLI) | payer OTHER, SELFPAY | END 2024-04-01 15:24 | disposition home or self-care (01) | LOC: NFLDREF 15:24 | PROVIDERS: PCP Family Medicine; Visit Provider Family Medicine | DX: R79.89 Other specified abnormal findings of blood chemistry (principal) | CPT/HCPCS: 84439; 84443 ==

== ENCOUNTER 2024-04-29 09:45 | Outpatient (CLI) | payer OTHER, SELFPAY | END 2024-04-29 09:46 | disposition home or self-care (01) | PROVIDERS: PCP Family Medicine; Visit Provider Family Medicine | DX: R42 Dizziness and giddiness (principal); I45.6 Pre-excitation syndrome; I95.9 Hypotension, unspecified; R53.83 Other fatigue; R79.89 Other specified abnormal findings of blood chemistry; Z12.5 Encounter for screening for malignant neoplasm of prostate | CPT/HCPCS: 80053; 80061; 84439; 84443; 84480; G0103 ==

== ENCOUNTER 2024-05-03 12:49 | Outpatient (CLI) | payer OTHER, SELFPAY | END 2024-05-03 12:50 | disposition home or self-care (01) | LOC: RAD 12:50 | PROVIDERS: PCP Family Medicine; Visit Provider Family Medicine | DX: R42 Dizziness and giddiness (principal); I07.1 Rheumatic tricuspid insufficiency; I45.6 Pre-excitation syndrome | CPT/HCPCS: 93306 ==

== ENCOUNTER 2024-06-17 15:02 | Outpatient (CLI) | payer OTHER, SELFPAY | END 2024-06-17 15:03 | disposition home or self-care (01) | LOC: NFLDREF 06-23 00:29 | PROVIDERS: PCP Family Medicine; Referring Provider Family Medicine; Visit Provider Family Medicine | DX: E78.5 Hyperlipidemia, unspecified (principal); Z12.5 Encounter for screening for malignant neoplasm of prostate; Z13.1 Encounter for screening for diabetes mellitus | CPT/HCPCS: 80061; 82947; G0103 ==